=== PATIENT | male | born 1955 | race Caucasian/White ===

== ENCOUNTER 2016-03-13 09:23 | Day surgery (SDC) | payer OTHER ==
[~2016-03-13 09:23] MED LIST: HYDROmorphone HCL 2 MG/ML VIAL IV PRN; RINGERS SOLUTION,LACTATED 1,000 ML IV PRN; ROPIVACAINE HCL/PF 40 MG in NORMAL SALINE 16 ML IJ PRN; ceFAZolin SODIUM 1 GM VIAL IV PRN; oxyCODONE HCL/ACETAMINOPHEN 1 TAB TABLET PO PRN
[2016-03-13] MEDS ORDERED: BUPIVACAINE HCL/EPINEPHRINE 10 ML VIAL IJ ONE (11:05)
--- NOTE | 2016-03-13 11:42 | OR ---
Operative Report - Dictated Report Narrative: Date: 03/13/2016 Physician: Wu Anne M.D. Apprentice Painter Hand: Renny Garcia PA-C Preoperative diagnosis: Right Knee medial meniscus tear, Mike's cyst Postoperative diagnosis: Right Knee medial meniscus tear, Mike's cyst, anterior medial plica Procedure: Right knee arthroscopy with partial medial meniscectomy, excision of anterior medial plica, aspiration of Mike cyst Anesthesia: MAC Plus local Complications: None Estimated blood loss: Minimal Tourniquet time: None Specimens: None Retained implants: None Drains: None Indications: Mr. Olson Is a 60 year-old male who has been followed in my clinic with complaints of knee pain consistent with suspected medial joint pathology. Physical exam and diagnostic imaging were consistent with these complaints and concern for medial meniscus pathology. Conservative measures have failed including, but not limited to, passage of time, activity modification, medications, and injections. The risks, benefits, and alternatives were discussed in clinic. The risks being , bleeding, infection, blood clots, nerve, tendon, ligament, blood vessel injury, persistent pain, arthrosis, need for additional procedures, and persistent symptoms. Consent was obtained in the clinic. Procedure: After marking the correct extremity in the preoperative holding area, a timeout was performed in the operating room. IV antibiotics consisting of Ancef were administered prior to the procedure. A well-padded tourniquet was applied to the operative upper thigh. The leg was prepped and draped in a standard sterile fashion. 0.5% Marcaine with epinephrine was infused into the projected portal sites as well as the intra-articular space. A jeanette incision was made for inferior lateral portal. A blunt trocar and cannula was introduced into the knee. The suprapatellar pouch revealed no pathology. The medial patella facet showed grade 2 change. The lateral patella facet showed grade 2 change. The trochlea showed grade 2 to focal grade 3 change. The medial gutter revealed an anterior medial plica which appeared to abrade over the medial femoral condyle. The medial joint space was then entered utilizing a lateral post and valgus stress. A spinal needle was utilized for guidance into placement of an anterior medial portal. This was placed just superior to the medial meniscus ensuring that we could reach the posterior aspect of the medial joint space. A jeanette incision was made in the site, and the probe was introduced to the knee. The medial joint space was examined, and the medial femoral condyle showed grade 2 change. The medial tibial plateau showed grade 2 change. The medial meniscus had a complex tear at the junction of the posterior and middle thirds which extended approximately 50% the depth over approximately 20% of the circumference. The notch was then examined, and the ACL was noted to be intact. The PCL was noted to be intact. The lateral joint space was then examined using a varus force in the figure 4 position. Lateral femoral condyle showed, arthrosis. Lateral tibial plateau showed focal grade 2 change. The lateral meniscus showed no tear. The lateral gutter showed pathology. Having identified the surgical pathology, a series of biters and edy were utilized in order to debride the posterior aspect of the medial meniscus to a depth of approximately 50% over approximately 20% of the circumference. Anterior medial plica was debrided using a shaver down to the joint capsule. Once it was felt that we adequately addressed the pathology, the knee was thoroughly irrigated. The fluid was evacuated ensuring that we have removed all meniscal, chondral, and any other loose bodies. A final evaluation of the joint showed no additional pathology. The fluid was then evacuated of the knee, and the trocar and camera were removed from the joint. A spinal needle was utilized in order to aspirate the Mike's cyst in which we removed 17 mL of viscous fluid. The wounds were closed with interrupted nylon after placing 10 mL of 0.2% ropivacaine into the joint. Dressings consisting of Xeroform, 4 x 4, ABD, soft roll, and an Hima were applied. All sponge, needle, blade, and instrument counts were correct prior to closing the wounds. The patient was awoken and transferred to the postanesthesia care unit in stable condition.
[2016-03-13 13:24] VITALS: BP 137/69
== END 2016-03-13 09:24 | disposition home or self-care (01) ==
LOC: AMB 09:23
PROVIDERS: ATTEND Orthopaedic Surgery
PROC: 0S9C3ZX Drainage of Right Knee Joint, Percutaneous Approach, Diagnostic (ICD-10-PCS; 2016-03-13)
PROC: 0SBC4ZZ Excision of Right Knee Joint, Percutaneous Endoscopic Approach (ICD-10-PCS; principal; 2016-03-13 11:50)
DX: M23.203 Derangement of unspecified medial meniscus due to old tear or injury, right knee (principal); M71.21 Synovial cyst of popliteal space [Baker], right knee; K21.9 Gastro-esophageal reflux disease without esophagitis; Z87.891 Personal history of nicotine dependence; Z68.27 Body mass index [BMI] 27.0-27.9, adult